=== PATIENT | male | born 1995 | race African-American/Black ===

== ENCOUNTER 2023-09-14 02:20 | Emergency (ER) | payer SELFPAY ==
[2023-09-14] MEDS ORDERED: Ketorolac Tromethamine 30 MG/ML VIAL ONE (03:22)
== END 2023-09-14 03:28 | disposition home or self-care (01) ==
LOC: CSHERS 02:20
DX: S62.336A Displaced fracture of neck of fifth metacarpal bone, right hand, initial encounter for closed fracture (principal); I10 Essential (primary) hypertension; F17.210 Nicotine dependence, cigarettes, uncomplicated; W22.8XXA Striking against or struck by other objects, initial encounter
CPT/HCPCS: 29125; 96372; J1885